=== PATIENT | female | born 1995 | race African-American/Black ===

== ENCOUNTER 2018-09-21 19:00 | Emergency (ER) | payer MEDICAID ==
[2018-09-21] MEDS: DIPHTH/TET/ACEL PERTUSS (ADULT) 0.5 ML VIAL IM* (20:41)
== END 2018-09-21 21:05 | disposition home or self-care (01) ==
LOC: FTE 21:05
DX: S01.25XA Open bite of nose, initial encounter (principal); W54.0XXA Bitten by dog, initial encounter; Y92.9 Unspecified place or not applicable; Z23 Encounter for immunization
CPT/HCPCS: 81025; 90471; 90715; 99283-25